=== PATIENT | female | born 1940 | race Caucasian/White ===

== ENCOUNTER 2017-11-09 09:45 | Emergency (ER) | payer OTHER ==
[~2017-11-09] VITALS: Ht 152.4 cm; Wt 74.8 kg
[~2017-11-09 09:45] MED LIST: LEVAQUIN750 MG PO; OMEPRAZOLE40 MG
== END 2017-11-09 14:53 | disposition home or self-care (01) ==
LOC: ER 09:45
DX: S00.03XA Contusion of scalp, initial encounter (principal); S30.0XXA Contusion of lower back and pelvis, initial encounter; S19.80XA Other specified injuries of unspecified part of neck, initial encounter; W18.09XA Striking against other object with subsequent fall, initial encounter; Y93.89 Activity, other specified; Y92.018 Other place in single-family (private) house as the place of occurrence of the external cause; Y99.8 Other external cause status

== ENCOUNTER 2018-04-29 08:54 | Emergency (ER) | payer OTHER ==
[~2018-04-29] VITALS: Ht 152.4 cm; Wt 75.7 kg
[2018-04-29] MEDS ORDERED: AZELASTINE137 MCG/0. NS (09:03)
== END 2018-04-29 11:41 | disposition home or self-care (01) ==
LOC: ER 08:54
DX: R05 Cough (principal); B34.9 Viral infection, unspecified

== ENCOUNTER 2018-07-26 12:06 | Outpatient (CLI) | payer OTHER ==
[~2018-07-26 12:06] MED LIST changes: +AZELASTINE137 MCG/0. NS
== END 2018-07-26 14:40 | disposition home or self-care (01) ==
LOC: LAB 12:06
DX: N20.0 Calculus of kidney (principal); Z51.81 Encounter for therapeutic drug level monitoring

== ENCOUNTER 2018-08-02 08:39 | Outpatient (CLI) | payer OTHER | END 2018-08-02 08:54 | disposition home or self-care (01) | LOC: MRI 08:39 | DX: D33.3 Benign neoplasm of cranial nerves (principal) | CPT/HCPCS: 70552; A9575 ==

== ENCOUNTER → 2018-09-17 | Emergency (ER) | payer OTHER ==
[~2018-09-17] VITALS: Ht 152.4 cm; Wt 75.7 kg
[~2018-09-17] MED LIST changes: +SINGULAIR 4MG4 MG PO
== END | disposition designated cancer center or children's hospital (05) ==
LOC: ER 16:11 → CPU-OBS 16:33
DX: I21.4 Non-ST elevation (NSTEMI) myocardial infarction (principal); R07.89 Other chest pain; R55 Syncope and collapse; S99.821A Other specified injuries of right foot, initial encounter; X58.XXXA Exposure to other specified factors, initial encounter; Y93.89 Activity, other specified; Y92.89 Other specified places as the place of occurrence of the external cause; Y99.8 Other external cause status

== ENCOUNTER 2020-11-07 07:07 | Outpatient (CLI) | payer OTHER | END 2020-11-07 12:39 | disposition home or self-care (01) | LOC: TOM 07:07 | PROVIDERS: ATTEND Internal Medicine Hematology & Oncology | DX: K57.90 Diverticulosis of intestine, part unspecified, without perforation or abscess without bleeding (principal); D47.2 Monoclonal gammopathy; R97.0 Elevated carcinoembryonic antigen [CEA] | CPT/HCPCS: 71260; 74177; Q9965 ==

== ENCOUNTER 2023-05-25 08:11 | Outpatient (CLI) | payer OTHER | END 2023-05-25 08:16 | disposition home or self-care (01) | LOC: RAD 08:11 | PROVIDERS: ATTEND Internal Medicine Pulmonary Disease | DX: J45.31 Mild persistent asthma with (acute) exacerbation (principal) ==